=== PATIENT | female | born 1950 | race Two or more races ===

== ENCOUNTER 2021-02-04 09:06 | Outpatient (REF) | payer OTHER, SELFPAY ==
[2021-02-05 14:29] LABS: BV Int Neg Control Negative (Negative); BV Int Pos Control Positive (Positive)
== END 2021-02-04 09:07 | disposition home or self-care (01) ==
LOC: HO.LAB 09:06
PROVIDERS: PCP Internal Medicine; Visit Provider Advanced Practice Midwife
DX: N90.89 Other specified noninflammatory disorders of vulva and perineum (principal); N89.8 Other specified noninflammatory disorders of vagina
CPT/HCPCS: 87255; 87480; 87510; 87660; 99212

== ENCOUNTER 2021-02-13 | Outpatient (REF) | payer OTHER, SELFPAY | END 2021-02-13 00:01 | disposition home or self-care (01) | LOC: HO.LAB | PROVIDERS: Visit Provider Obstetrics & Gynecology | DX: L29.2 Pruritus vulvae (principal) | CPT/HCPCS: 88305; 88312 ==

== ENCOUNTER → 2021-02-13 11:07 | Outpatient (BNVA) | payer OTHER, SELFPAY | PROVIDERS: PCP Internal Medicine; Visit Provider Obstetrics & Gynecology | DX: L29.2 Pruritus vulvae (principal) | CPT/HCPCS: 56605; 99212 ==

== ENCOUNTER → 2021-03-13 15:42 | Outpatient (BNVA) | payer OTHER, SELFPAY | PROVIDERS: Visit Provider Obstetrics & Gynecology | DX: L90.0 Lichen sclerosus et atrophicus (principal) | CPT/HCPCS: 99212 ==

== ENCOUNTER 2021-06-24 14:09 | Emergency (ER) | payer OTHER, SELFPAY ==
--- NOTE | ~2021-06-24 | XR_ITS ---
EXAMINATION: XR LUMBOSACRAL SPINE CLINICAL INFORMATION: Fall, pain COMPARISON: No pertinent studies to compare TECHNIQUE: Three views of the lumbosacral spine. FINDINGS: There is grade 1 anterolisthesis of L4 and L5. This is likely degenerative. Acute listhesis cannot be completely excluded. Sclerotic changes in the endplates and sclerotic changes in the posterior elements from L3-L4 to L5-S1. Significant degeneration at L5-S1 with loss of disc height and posterior degenerative changes. Mild scoliosis convex left. From the vertebral heights are fairly well-preserved. XR/XR lumbar spine 2-3V IMPRESSION: No convincing evidence for an acute finding. Moderate degenerative changes and there is grade 1 anterolisthesis of L4 and L5 which may well be degenerative in nature. An element of acute listhesis cannot be completely excluded. No compression injury
--- NOTE | ~2021-06-24 | XR_ITS ---
Indication: Fall EXAMINATION: Bilateral knees., Left ankle 2 views of the right knee demonstrate degenerative changes. Moderate. No acute fracture or dislocation. 2 views of left knee and straight degenerative changes. Moderate. No acute fracture or dislocation. 3 views of the left ankle demonstrate soft tissue swelling. No acute fracture or dislocation. XR/XR knee RT 2V IMPRESSION: No acute fracture or dislocation left ankle, left knee or right knee. Degenerative changes noted
--- NOTE | ~2021-06-24 | XR_ITS ---
Indication: Fall EXAMINATION: Bilateral knees., Left ankle 2 views of the right knee demonstrate degenerative changes. Moderate. No acute fracture or dislocation. 2 views of left knee and straight degenerative changes. Moderate. No acute fracture or dislocation. 3 views of the left ankle demonstrate soft tissue swelling. No acute fracture or dislocation. XR/XR knee LT 2V IMPRESSION: No acute fracture or dislocation left ankle, left knee or right knee. Degenerative changes noted
--- NOTE | ~2021-06-24 | XR_ITS ---
Indication: Fall EXAMINATION: Bilateral knees., Left ankle 2 views of the right knee demonstrate degenerative changes. Moderate. No acute fracture or dislocation. 2 views of left knee and straight degenerative changes. Moderate. No acute fracture or dislocation. 3 views of the left ankle demonstrate soft tissue swelling. No acute fracture or dislocation. XR/XR ankle LT 2V IMPRESSION: No acute fracture or dislocation left ankle, left knee or right knee. Degenerative changes noted
[2021-06-24 15:23] VITALS: BP 121/97; PULSE 54; RESP 18; TEMP 36.8; O2SAT 99; BMI 24.0
[2021-06-24 17:51] VITALS: BP 184/89; PULSE 56; RESP 18; TEMP 36.8; O2SAT 97
--- NOTE | 2021-06-24 18:07 | ED_ITS ---
HPI - General Adult General Chief complaint: Extremity Injury, Lower Stated complaint: leg pain Time Seen by Provider: 06/24/21 18:01 Source: patient and family Limitations: no limitations History of Present Illness HPI narrative: This is a 71-year-old female who 3 [place] the [place] and [place], injuring her knees and her left ankle. The patient also complains of low back pain. She denies any head injury or loss of consciousness. She denies any headache or neck pain. She denies any chest pain, shortness of breath, or abdominal pain. She has been able to ambulate at home. Related Data Home Medications Medication Instructions Recorded Confirmed amlodipine 5 mg tablet 5 mg PO BEDTIME 02/04/21 gabapentin 300 mg capsule 300 mg PO 02/04/21 lisinopril 40 mg tablet 40 mg PO DAILY 02/04/21 melatonin 5 mg tablet 0 mg PO 02/04/21 metoprolol tartrate 25 mg tablet 37.5 mg PO TID 02/04/21 omeprazole 20 mg capsule,delayed 20 mg PO DAILY 02/04/21 release trazodone 50 mg tablet 50 mg PO BEDTIME 02/04/21 Previous Rx's Medication Instructions Recorded clobetasol 0.05 % topical ointment 1 appl TOPICAL DAILY #45 g 03/13/21 tramadol 50 mg tablet 50 - 100 mg PO Q4H PRN #20 tab 06/24/21 Allergies Allergy/AdvReac Type Severity Reaction Status Date / Time No Known Allergies Allergy Mild N/A Verified 06/24/21 15:23 Review of Systems Constitutional: Constitutional: Reports as per HPI Musculoskeletal: Musculoskeletal: Reports back pain and Reports arthralgias (Bilateral knees and left ankle) Integumentary/Breasts: Comments: Abrasion over right inferior knee Neurologic: Denies Sensory deficit (Neuro) FOR[facility]LY [facility] Past Medical History Medical History Arthritis Hx of migraine headaches Hypertension Insomnia Lichen sclerosus Surgical History H/O breast biopsy Hx of section Hx of tubal ligation Family History Family History Sister History of breast cancer Social History Social History Alcohol intake: never Advance Directives: No Advance Directives Information Provided: Yes Gender identity: female Physical Exam Vital Signs: Vital Signs: Last Vital Signs Temp 98.2 F 06/24/21 17:51 Pulse 56 06/24/21 17:51 Resp 18 06/24/21 17:51 BP 184/89 H 06/24/21 17:51 Pulse Ox 97 06/24/21 17:51 Body Mass Index 24.0 Const: General: cooperative, no acute distress and alert Orientation/consciousness: patient oriented x3 HENMT: Head: Yes normal to inspection Eyes: General: appearance normal, both eyes and all related structures Eyelids: Yes eyelids normal Conjunctivae: conjunctivae normal Pupils: Equal, round and reactive pupils present Neck: Neck: Yes normal visual inspection and Yes supple Chest: Chest palpation & inspection: normal inspection of the chest Resp: Effort & Inspection: normal respiratory effort Auscultation: clear to auscultation bilaterally Cardio: Rate: regular rate Rhythm: regular rhythm Heart sounds: S1 normal heart sound present, S2 normal heart sound present, no gallops, no murmurs and no rubs GI: Palpation (GI): Soft to palpation, nontender and Other GI palpation findings present (Non-distended) Auscultation: normal bowel sounds Back/Spine/Pelvis: Back: back tenderness (Tender over lumbar spine) Skin: General skin exam: no rashes or lesions noted Neuro: General: patient oriented x3, no focal motor deficits and CN's II-XI intact bilaterally Cranial nerves: Yes Equal, round and reactive pupils present Cognition (Neuro): normal cognition Motor exam (neuro): 5/5 motor strength present throughout Sensory Exam: No Sensory deficit (Neuro) Extrem: Other: Superficial abrasion over right inferior knee. Both knees otherwise atraumatic, no effusion. Mildly tender left lateral ankle with perhaps mild swelling. General: Yes normal to inspection and Yes no pedal edema Psych: Appearance: grossly normal Affect: normal affect Medical Decision Making MDM Narrative Medical decision making narrative: Patient with complaints of back pain, knee pain bilaterally, left ankle pain after fall 3 days ago at the beach. Patient appears well clinically, was able to stand up. Patient had a minor abrasion to right knee and mild tenderness to her left lateral ankle. Patient also had tenderness to her lumbar spine. X-rays negative. Patient can take acetaminophen and tramadol for pain Imaging Data Lumbar spine: Radiologist's impression: No convincing evidence for an acute finding. Moderate degenerative changes and there is grade 1 anterolisthesis of L4 and L5 which may well be degenerative in nature. An element of acute listhesis cannot be completely excluded. No compression injury Bilateral knees and left ankle: Radiologist's impression: DJD, no evidence of fracture Discharge Plan Discharge Clinical Impression: Fall, Low back pain, Bilateral knee pain, Left ankle sprain Patient Disposition: Home, Self-Care Instructions: Ankle Sprain (ED), Acute Low Back Pain (ED) Additional Instructions: Use Tylenol and tramadol for pain. Follow-up with primary care physician as needed. Prescriptions: New tramadol 50 mg tablet 50 - 100 mg PO Q4H PRN (Reason: pain) Qty: 20 RF: 0 No Action melatonin 5 mg tablet 0 mg PO RF: 0 metoprolol tartrate 25 mg tablet 37.5 mg PO TID RF: 0 omeprazole 20 mg capsule,delayed release(DR/EC) 20 mg PO DAILY RF: 0 gabapentin 300 mg capsule 300 mg PO RF: 0 amlodipine 5 mg tablet 5 mg PO BEDTIME RF: 0 trazodone 50 mg tablet 50 mg PO BEDTIME RF: 0 lisinopril 40 mg tablet 40 mg PO DAILY RF: 0 clobetasol 0.05 % ointment 1 appl topical DAILY Qty: 45 RF: 5 Interventions: ED Discharge Assessment Last Done: 06/24/21 19:11 Discharge Date/Time: 06/24/21 19:12
[2021-06-24] MEDS: traMADoL HCL 50 MG TABLET PO (19:09)
[2021-06-24] MEDS: Acetaminophen 325 MG TABLET 650 MG PO (19:09)
== END 2021-06-24 19:12 | disposition home or self-care (01) ==
PROVIDERS: Emergency Provider Emergency Medicine
DX: S93.402A Sprain of unspecified ligament of left ankle, initial encounter (principal); M25.561 Pain in right knee; M25.562 Pain in left knee; M54.5 Low back pain; W01.0XXA Fall on same level from slipping, tripping and stumbling without subsequent striking against object, initial encounter; Y93.9 Activity, unspecified; Y92.9 Unspecified place or not applicable; Y99.9 Unspecified external cause status; Z79.899 Other long term (current) drug therapy
CPT/HCPCS: 72100; 73560; 73600; 99283

== ENCOUNTER 2022-05-16 12:22 | Emergency (ER) | payer OTHER, SELFPAY ==
--- NOTE | ~2022-05-16 | CT_ITS ---
EXAMINATION: CT ABDOMEN AND PELVIS WITHOUT CONTRAST CLINICAL INFORMATION: Abdominal pain COMPARISON: CT abdomen pelvis 03/13/2014, chest radiograph 12/13/2017, CT PE 09/07/2017 TECHNIQUE: Multidetector volumetric imaging was performed from the superior aspect of the liver through the pubic symphysis. Sagittal and coronal reformatted images were obtained on the technologist's workstation. This CT examination was performed using dose optimization techniques as appropriate, variously including the following: *Automated exposure control *Adjustment of mA and/or kV according to patient size (this includes techniques or standardized protocols for targeted exams where dose is matched to indication/reason for exam; i.e. extremities or head) *Use of iterative reconstruction technique DLP: 1332 mGy-cm FINDINGS: Exam is motion degraded limiting evaluation. LUNG BASES: Calcified granuloma in the right lower lobe. 6 mm solid left lower lobe pulmonary nodule stable from 2013 therefore likely benign. ABDOMINAL AND PELVIC WALL: Unremarkable. LIVER AND BILIARY TREE: Unremarkable. GALLBLADDER: Unremarkable. PANCREAS: Unremarkable. SPLEEN: Unremarkable. ADRENAL GLANDS: Unremarkable. KIDNEYS AND URETERS: Unremarkable. GASTROINTESTINAL TRACT: Large and small bowel are nondilated without evidence of bowel obstruction. Normal appendix. VASCULAR: Unremarkable. LYMPH NODES/PERITONEUM: No lymphadenopathy. FREE FLUID: None. BLADDER: Unremarkable. 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 OSSEOUS STRUCTURES: Age-indeterminate inferior wedge compression deformity of the T11 vertebral body with 25% height loss new from prior. Multilevel degenerative disc disease. CT/CT abdomen pelvis wo con IMPRESSION: Age-indeterminate inferior wedge compression deformity of the T11 vertebral body with 25% height loss new from prior. Exam is motion degraded limiting evaluation.
[2022-05-16 13:06] VITALS: BP 163/88; PULSE 71; RESP 16; TEMP 36.2; O2SAT 98; BMI 25.7
[2022-05-16 13:43] LABS: Alanine Aminotransferase 11 U/L (0-31); Albumin Level 4.2 g/dL (3.5-5.0); Alkaline Phosphatase 67 U/L (39-117); Anion Gap 11 (12-20); Aspartate Amino Transferase 14 U/L (5-31); Bilirubin Total 0.9 mg/dL (0.0-1.0); Blood Urea Nitrogen 10 mg/dL (9-16); Calcium 9.3 mg/dL (8.4-10.2); Carbon Dioxide 29 mmol/L (22-29); Chloride 104 mmol/L (96-108); Creatinine Clr Calc Pharmacy 52.1; Estimated Glomerular Filt Rate > 60; Glucose Random 106 mg/dL (60-115); Lipase 34 U/L (8-78); Potassium 3.8 mmol/L (3.3-5.1); Sodium 140 mmol/L (135-145); Total Protein 6.9 g/dL (6.5-8.0)
[2022-05-16 13:45] LABS: Hematocrit 39.5 % (37.0-47.0); Hemoglobin 13.3 g/dl (12.0-16.0); Mean Corpuscular HGB Conc 33.7 g/dl (31.0-35.0); Mean Corpuscular Hemoglobin 28.2 pg (27.0-33.0); Mean Corpuscular Volume 83.9 fL (80.0-98.0); Mean Platelet Volume 9.2 fL (9.4-12.3); Platelet Count 241 X10*3/uL (160-400); Red Blood Count 4.71 X10*6/uL (4.20-5.50); Red Cell Distribution Width 13.2 % (11.0-16.0); White Blood Count 6.4 X10*3/uL (4.8-10.8)
[2022-05-16 13:50] LABS: COVID-19 Test Negative (Negative); IDNOW Serial# 16C4AD1C
[2022-05-16 13:51] LABS: Prothrombin Time 11.2 SEC (10.0-13.1)
--- NOTE | 2022-05-16 14:32 | ED.ABDPAIN ---
HPI - Abdominal Pain General Chief Complaint: Abdominal Pain Stated Complaint: Stomach Pain Time Seen by Provider: 05/16/22 14:18 Source: patient and family (daughter) Mode of arrival: ambulatory History of Present Illness HPI narrative: This is a 72 years old female presented to the emergency department the daughter complaining of abdominal pain which has been ongoing for about a month. She denies any vomiting any diarrhea.Daughter states that she has blood in the stls MD elicited complaint: abdominal pain Pertinent past history: gastritis Onset (ago): month(s) (1 month) Pain Consistency: constant Location: epigastric Severity: mild Quality: cramping Radiation: none Migration to: no migration Relieving factors: nothing Related Data Home Medications Medication Instructions Recorded Confirmed amlodipine 5 mg tablet 5 mg PO BEDTIME 02/04/21 gabapentin 300 mg capsule 300 mg PO 02/04/21 lisinopril 40 mg tablet 40 mg PO DAILY 02/04/21 melatonin 5 mg tablet 0 mg PO 02/04/21 metoprolol tartrate 25 mg tablet 37.5 mg PO TID 02/04/21 omeprazole 20 mg capsule,delayed 20 mg PO DAILY 02/04/21 release trazodone 50 mg tablet 50 mg PO BEDTIME 02/04/21 Previous Rx's Medication Instructions Recorded clobetasol 0.05 % topical ointment 1 appl topical DAILY #45 grams 03/13/21 tramadol 50 mg tablet 50 - 100 mg PO Q4H PRN pain #20 06/24/21 tabs Allergies Allergy/AdvReac Type Severity Reaction Status Date / Time No Known Allergies Allergy Mild N/A Verified 05/16/22 13:11 Review of Systems Review of Systems Yes all other systems are reviewed and are negative Reports system reviewed and no additional complaints, except as documented Cardiovascular: Reports no additional cardiovascular complaints Respiratory: Reports no additional respiratory complaints Gastrointestinal: Reports abdominal pain Reports system reviewed and no additional complaints, except as documented PMFSH Past Medical History Medical History Arthritis Hx of migraine headaches Hypertension Insomnia Lichen sclerosus Surgical History H/O breast biopsy Hx of section Hx of tubal ligation Family History Family History Sister History of breast cancer Social History Social History Alcohol intake: never Advance Directives: No Advance Directives Information Provided: Yes Gender identity: Female Physical Exam ED Vital Signs: Vital Signs - 24 hr 05/16/22 13:06 05/16/22 16:01 Temperature 97.1 F 98.3 F Pulse Rate 71 49 L Respiratory Rate 16 16 Blood Pressure 163/88 H 162/77 H Pulse Oximetry 98 98 Oxygen Delivery Method Room Air Room Air BMI result Body Mass Index 25.7 Const General: cooperative, comfortable, no acute distress, well developed, alert and awake Nutritional Appearance: average body habitus Orientation/consciousness: patient oriented x3 HENMT Head: Yes normal to inspection Face and sinus: Yes normal facial exam Mouth: Normal oral and palatal mucosa present Throat: Yes posterior oropharynx normal Eyes Conjunctivae: conjunctivae normal Sclerae: sclerae normal Neck Neck: Yes normal visual inspection Chest Chest palpation & inspection: normal inspection of the chest Resp Effort & Inspection: normal respiratory effort Auscultation: clear to auscultation bilaterally Cardio Jugular venous distension: no JVD Rate: regular rate Rhythm: regular rhythm GI Inspection: Yes normal to inspection Palpation (GI): Soft to palpation, not firm, nontender and no guarding Rectal Exam - Female: visual inspection normal, normal sphincter tone, heme positive stool Rectal exam heme positive - female: trace (stools brown trace heme positive), No fecal impaction, No Anal fissure(s) present, No hemorrhoids and No mass General: Yes no CVA tenderness Back/Spine/Pelvis Back: no CVA tenderness Skin General skin exam: no rashes or lesions noted, elasticity normal and turgor normal Lesions: no lesions Rashes: no rashes Neuro General: patient oriented x3 Cranial nerves: Yes CN's II-XII intact bilaterally Gait exam (Neuro): Normal gait present Course Course Course Narrative: Pt has normal WBC,HB /HCT is 13.3/39.5 pain hs been ongoing for 1 Month she is already on omeprazole, we will get CT scan abdomen and reassess Reevaluation(s) Reevaluation #1: she is feeling better no abdominal pain at this time she is taking omeprazole already. HB/HCT normal ct abdomen no bowel pathology. Shared decision making with pt and daughter it is resonable work this up s outpatient with endoscopy upper and lower,daughter comfortable with the plan of care. I also explained to the daughter and the pt that she has compressive Fx of T11 will need follow up with PCP as well Time: 16:02 Reevaluation #2: I spoke also with GI Dr Hamm will see pt in the office and will schedule upper and lower endoscopy Time: 16:03 MDM - Abdominal Pain Lab Data Result diagrams: 05/16/22 13:20 05/16/22 13:20 Labs: Lab Results 05/16/22 05/16/22 05/16/22 Range/Units 13:20 13:20 13:20 WBC 6.4 (4.8-10.8) X10*3/uL RBC 4.71 (4.20-5.50) X10*6/uL Hgb 13.3 (12.0-16.0) g/dl Hct 39.5 (37.0-47.0) % MCV 83.9 (80.0-98.0) fL MCH 28.2 (27.0-33.0) pg MCHC 33.7 (31.0-35.0) g/dl RDW 13.2 (11.0-16.0) % Plt Count 241 (160-400) X10*3/uL MPV 9.2 L (9.4-12.3) fL Absolute Nucleated RBC 0.000 (0.0-0.012) X10*3/uL Nucleated RBC % (auto) 0.0 (0.0-0.2) /100WBC PT 11.2 (10.0-13.1) SEC INR 1.0 (0.9-1.1) Sodium 140 (135-145) mmol/L Potassium 3.8 (3.3-5.1) mmol/L Chloride 104 (96-108) mmol/L Carbon Dioxide 29 (22-29) mmol/L Anion Gap 11 L (12-20) BUN 10 (9-16) mg/dL Creatinine 0.91 (0.5-1.4) mg/dL Estim Creat Clear Calc 52.1 Estimated GFR > 60 Random Glucose 106 (60-115) mg/dL Calcium 9.3 (8.4-10.2) mg/dL Total Bilirubin 0.9 (0.0-1.0) mg/dL AST 14 (5-31) U/L ALT 11 (0-31) U/L Alkaline Phosphatase 67 (39-117) U/L Total Protein 6.9 (6.5-8.0) g/dL Albumin 4.2 (3.5-5.0) g/dL Lipase 34 (8-78) U/L Urine Color Urine Appearance Urine pH (5.0-8.0) Ur Specific [place] (1.005-1.025) Urine Protein (NEG-TRACE) MG/DL Urine Glucose (UA) (NEG) MG/DL Urine Ketones (NEG) MG/DL Urine Blood (NEG) Urine Nitrite (NEG) Ur Leukocyte Esterase (NEG) Stool Occult Blood (NEGATIVE) COVID-19 ([facility]) (Negative) COVID-19 Clin Com Blood Type Antibody Screen 05/16/22 05/16/22 05/16/22 Range/Units 13:20 13:20 14:51 WBC (4.8-10.8) X10*3/uL RBC (4.20-5.50) X10*6/uL Hgb (12.0-16.0) g/dl Hct (37.0-47.0) % MCV (80.0-98.0) fL MCH (27.0-33.0) pg MCHC (31.0-35.0) g/dl RDW (11.0-16.0) % Plt Count (160-400) X10*3/uL MPV (9.4-12.3) fL Absolute Nucleated RBC (0.0-0.012) X10*3/uL Nucleated RBC % (auto) (0.0-0.2) /100WBC PT (10.0-13.1) SEC INR (0.9-1.1) Sodium (135-145) mmol/L Potassium (3.3-5.1) mmol/L Chloride (96-108) mmol/L Carbon Dioxide (22-29) mmol/L Anion Gap (12-20) BUN (9-16) mg/dL Creatinine (0.5-1.4) mg/dL Estim Creat Clear Calc Estimated GFR Random Glucose (60-115) mg/dL Calcium (8.4-10.2) mg/dL Total Bilirubin (0.0-1.0) mg/dL AST (5-31) U/L ALT (0-31) U/L Alkaline Phosphatase (39-117) U/L Total Protein (6.5-8.0) g/dL Albumin (3.5-5.0) g/dL Lipase (8-78) U/L Urine Color Urine Appearance Urine pH (5.0-8.0) Ur Specific [place] (1.005-1.025) Urine Protein (NEG-TRACE) MG/DL Urine Glucose (UA) (NEG) MG/DL Urine Ketones (NEG) MG/DL Urine Blood (NEG) Urine Nitrite (NEG) Ur Leukocyte Esterase (NEG) Stool Occult Blood POSITIVE (NEGATIVE) COVID-19 ([facility]) Negative (Negative) COVID-19 Clin Com See Note Blood Type O Positive Antibody Screen NEGATIVE 05/16/22 Range/Units 15:56 WBC (4.8-10.8) X10*3/uL RBC (4.20-5.50) X10*6/uL Hgb (12.0-16.0) g/dl Hct (37.0-47.0) % MCV (80.0-98.0) fL MCH (27.0-33.0) pg MCHC (31.0-35.0) g/dl RDW (11.0-16.0) % Plt Count (160-400) X10*3/uL MPV (9.4-12.3) fL Absolute Nucleated RBC (0.0-0.012) X10*3/uL Nucleated RBC % (auto) (0.0-0.2) /100WBC PT (10.0-13.1) SEC INR (0.9-1.1) Sodium (135-145) mmol/L Potassium (3.3-5.1) mmol/L Chloride (96-108) mmol/L Carbon Dioxide (22-29) mmol/L Anion Gap (12-20) BUN (9-16) mg/dL Creatinine (0.5-1.4) mg/dL Estim Creat Clear Calc Estimated GFR Random Glucose (60-115) mg/dL Calcium (8.4-10.2) mg/dL Total Bilirubin (0.0-1.0) mg/dL AST (5-31) U/L ALT (0-31) U/L Alkaline Phosphatase (39-117) U/L Total Protein (6.5-8.0) g/dL Albumin (3.5-5.0) g/dL Lipase (8-78) U/L Urine Color YELLOW Urine Appearance CLEAR Urine pH 7.0 (5.0-8.0) Ur Specific [place] <= 1.005 (1.005-1.025) Urine Protein NEG (NEG-TRACE) MG/DL Urine Glucose (UA) NEG (NEG) MG/DL Urine Ketones NEG (NEG) MG/DL Urine Blood TRACE (NEG) Urine Nitrite NEG (NEG) Ur Leukocyte Esterase NEG (NEG) Stool Occult Blood (NEGATIVE) COVID-19 ([facility]) (Negative) COVID-19 Clin Com Blood Type Antibody Screen Imaging Data CT scan - abdomen: Radiologist's impression: ADRENAL GLANDS: Unremarkable.? KIDNEYS AND URETERS: Unremarkable.? GASTROINTESTINAL TRACT: Large and small bowel are nondilated without evidence of bowel obstruction.? Normal appendix. VASCULAR: Unremarkable. LYMPH NODES/PERITONEUM: No lymphadenopathy. FREE FLUID: None. BLADDER: Unremarkable.? 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 OSSEOUS STRUCTURES: Age-indeterminate inferior wedge compression deformity of the T11 vertebral body with 25% height loss new from prior. Multilevel degenerative disc disease.? CT/CT abdomen pelvis wo con IMPRESSION: ? Age-indeterminate inferior wedge compression deformity of the T11 vertebral body with 25% height loss new from prior. ? Exam is motion degraded limiting evaluation. ? ? Discharge Plan Discharge Clinical Impression: Abdominal pain, Compression fx, thoracic spine Patient Disposition: Home, Self-Care Instructions: Vertebral Compression Fracture (ED), Abdominal Pain (ED) Additional Instructions: follow up with internal medicine physician Dr Hamm,return if worse, take the prilosec twice Day till you see Dr Hamm Prescriptions: No Action tramadol 50 mg tablet 50 - 100 mg PO Q4H PRN (Reason: pain) Qty: 20 0RF melatonin 5 mg tablet 0 mg PO metoprolol tartrate 25 mg tablet 37.5 mg PO TID omeprazole 20 mg capsule,delayed release(DR/EC) 20 mg PO DAILY gabapentin 300 mg capsule 300 mg PO amlodipine 5 mg tablet 5 mg PO BEDTIME trazodone 50 mg tablet 50 mg PO BEDTIME lisinopril 40 mg tablet 40 mg PO DAILY clobetasol 0.05 % ointment 1 appl topical DAILY Qty: 45 5RF Referrals: Milton Hamm [Physician] - 3 days Interventions: ED Discharge Assessment Last Done: 05/16/22 16:07 Discharge Date/Time: 05/16/22 16:10
[2022-05-16 15:04] LABS: OBS Int Ctl Valid YES; OBS1 POSITIVE (NEGATIVE)
[2022-05-16] MEDS: Magnesium Hydrox/Alum Hydrox 30 ML ORAL.SUSP PO (15:58)
[2022-05-16 16:01] VITALS: BP 162/77; PULSE 49; RESP 16; TEMP 36.8; O2SAT 98
[2022-05-16 16:02] LABS: Appearance Urine CLEAR; Color Urine YELLOW; Glucose Urine UA NEG (NEG); Leukocyte Esterase Urine NEG (NEG); Nitrite Urine NEG (NEG); Specific Gravity - Urine <= 1.005 (1.005-1.025); UACC Culture Trigger NO; Urine Blood TRACE (NEG); Urine Ketones NEG (NEG); Urine Protein NEG (NEG-TRACE)
[2022-05-16 16:18] LABS: Squamous Epithelial Cell Urine TRACE /LPF; WBC Urine 0-2 /HPF (0-4)
== END 2022-05-16 16:10 | disposition home or self-care (01) ==
PROVIDERS: Emergency Provider Emergency Medicine
DX: R10.9 Unspecified abdominal pain (principal); S22.080A Wedge compression fracture of T11-T12 vertebra, initial encounter for closed fracture; X58.XXXA Exposure to other specified factors, initial encounter; Z20.822 Contact with and (suspected) exposure to COVID-19; Y93.9 Activity, unspecified; Y92.9 Unspecified place or not applicable; Y99.9 Unspecified external cause status
CPT/HCPCS: 74176; 80053; 81001; 81003; 82272; 83690; 85027; 85610; 86850; 86900; 86901; 87635; 99284

== ENCOUNTER → 2022-06-01 15:09 | Outpatient (BNVA) | payer OTHER, SELFPAY | PROVIDERS: Visit Provider Obstetrics & Gynecology | DX: L90.0 Lichen sclerosus et atrophicus (principal) | CPT/HCPCS: 99212 ==

== ENCOUNTER → 2022-08-11 12:08 | Outpatient (BNVA) | payer OTHER, SELFPAY | PROVIDERS: PCP Internal Medicine Geriatric Medicine; Visit Provider Nurse Practitioner | DX: Z01.818 Encounter for other preprocedural examination (principal); R19.7 Diarrhea, unspecified; K57.92 Diverticulitis of intestine, part unspecified, without perforation or abscess without bleeding; R10.9 Unspecified abdominal pain | CPT/HCPCS: 99202 ==

== ENCOUNTER 2024-01-06 16:17 | Outpatient (REF) | payer OTHER, SELFPAY ==
[2024-01-06 17:51] LABS: Hematocrit 29.7 % (37.0-47.0); Hemoglobin 8.8 g/dl (12.0-16.0); Mean Corpuscular HGB Conc 29.6 g/dl (31.0-35.0); Mean Corpuscular Hemoglobin 20.1 pg (27.0-33.0); Mean Corpuscular Volume 67.8 fL (80.0-98.0); Platelet Count 243 X10*3/uL (160-400); Red Blood Count 4.38 X10*6/uL (4.20-5.50); Red Cell Distribution Width 18.2 % (11.0-16.0); White Blood Count 4.9 X10*3/uL (4.8-10.8)
[2024-01-06 18:18] LABS: Alanine Aminotransferase 10 U/L (0-31); Albumin Level 3.8 g/dL (3.5-5.0); Alkaline Phosphatase 60 U/L (39-117); Anion Gap 14 (12-20); Aspartate Amino Transferase 12 U/L (5-31); Bilirubin Total 0.5 mg/dL (0.0-1.0); Blood Urea Nitrogen 11 mg/dL (9-16); Calcium 9.1 mg/dL (8.4-10.2); Carbon Dioxide 30 mmol/L (22-29); Chloride 103 mmol/L (96-108); Estimated Glomerular Filt Rate > 60; Glucose Random 103 mg/dL (60-115); Iron 14 mcg/dL (30-160); Percent Iron Saturation 5 % (15-50); Potassium 3.7 mmol/L (3.3-5.1); Sodium 143 mmol/L (135-145); Total Iron Binding Capacity 290 mcg/dL (228-428); Total Protein 6.8 g/dL (6.5-8.0); Unsaturated Iron Binding 276 ug/dL
[2024-01-06 18:24] LABS: Ferritin 6 ng/mL (10-250); TSH reflex Free T4 0.39 uIU/mL (0.32-4.0)
[2024-01-06 18:37] LABS: Folate 8.3 ng/mL (> or = 4.0); Vitamin B12 228 pg/mL (200-900)
[2024-01-07 04:47] LABS: Estimated Average Glucose 103 mg/dL; Hemoglobin A1c % 5.2 % (<6.0)
== END 2024-01-06 16:18 | disposition home or self-care (01) ==
LOC: HO.HHCL 16:17
PROVIDERS: Visit Provider Student in an Organized Health Care Education/Training Program
DX: R42 Dizziness and giddiness (principal)
CPT/HCPCS: 36415; 80053; 82607; 82728; 82746; 83036; 83540; 84443; 85027

== ENCOUNTER 2024-01-27 11:56 | Outpatient (AMB) | payer OTHER, SELFPAY ==
--- NOTE | 2024-01-27 12:07 | A.OFFVIS_ITS ---
Intake Vital Signs 3 01/27/24 12:25 Height 5 ft 4 in Weight 123 lb 0.287 oz BMI 21.1 BP 113/79 Blood Pressure Location Rt brachial Position Sitting Pulse 85 Intake Visit Reasons: Colonoscopy Screening Intake Note: Patient presents to in office visit today for colonoscopy screening. CC: Patient's BUHR DRESSER and daughter states that the patient c/o epigastric pain, diarrhea, occasional blood in the stool, and stool incontinence. Patient's daughter states that she forgot the medication's list. Clinical Education Academic Coordinator Required: Yes Accompanied by: Family/Other Allergies No Known Allergies Allergy (Mild, Verified 01/27/24 12:32) N/A HPI Colonoscopy Screening 2 HPI0 Details Assessment & Plan (1) Pre-op examination: ?Code(s): Z01.818 - Encounter for other preprocedural examination ?Plan: [place] #[id number] She is here with a female family member who is her primary slitter helper and provides most of the history She has been having stomach pain, and then she have diarrhea and when she wipes it is blood. It is on the TT only and BRB. She indicates that the pain is over the entire abdomen. She is unable to express where the pain is better related to her impaired intellectual/cognitive this s disability.? 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 At times she will even have fecal incontinence. They can not ID any medication changes, illness or diet changes prior to this. She does not take any CIC medications. She is not on any anticoagulation. She is on iron therapy oral. There is no FHX of known CRC, stomach cancer, or colon problem. No N/V, not wt loss. She has never had a colonoscopy. I think we will get a EGD/colonoscopy, and an US of the abd. Also a GI panel and HP stool. She is on omeprazole qd. Start augmentin as she is quite sensitive in the left lower quadrant on exam and I will empirically try treating her for diverticulitis rather than putting her through another CT scan since she does had 1 in May of this year. There are no prior problems with anesthesia or sedation. No ID problems The do not know who her shaft headman is, may have to ask Dr. Holt if they require confirmation of her cardiac fitness for these procedures. ROV after US. (2) Diarrhea: ?Code(s): R19.7 - Diarrhea, unspecified (3) Diverticulitis: ?Code(s): K57.92 - Diverticulitis of intestine, part unspecified, without perforation or abscess without bleeding (4) Abdominal pain: ?Code(s): R10.9 - Unspecified abdominal pain ? ? ? Orders: Orders DGI Panel Today R19.7 - Diarrhea, unspecified ? DH pylori Ag StoolA Today R19.7 - Diarrhea, unspecified ? DUS abdomen complet e Today R10.9 - Unspecifie d abdominal pain, R19.7 - Diarrhea, unspecified ? Medications: New Epeg 3350-electroly yana 236-22.74-6.74 -5.86 gram (Golyt hema) ?? until feca l effluent is phuong r; do not exceed a total volume of 2 ,000 mL 240 mL? PO Q10M 1 day 4,000 mL 0RF H Z12.11 - Encounter for screening for malignant neoplas m of colon ? Eamoxicillin-pot cl avulanate 875-125 mg 1 tab? PO BID 10 days 20 tabs 0RF K57.92 - Diverticu litis of intestine , part unspecified , without perforat ion or abscess wit hout bleeding LABS: Ordered labs never obtained ULTRASOUND OF THE ABDOMEN 05/16/22 Not obtained * CT ABDOMEN AND PELVIS FINDINGS: Exam is motion degraded limiting evaluation. LUNG BASES: Calcified granuloma in the right lower lobe. 6 mm solid left lower lobe pulmonary nodule stable from 2014 therefore likely benign. ABDOMINAL AND PELVIC WALL: Unremarkable. LIVER AND BILIARY TREE: Unremarkable. GALLBLADDER: Unremarkable. PANCREAS: Unremarkable. SPLEEN: Unremarkable. ADRENAL GLANDS: Unremarkable. KIDNEYS AND URETERS: Unremarkable. GASTROINTESTINAL TRACT: Large and small bowel are nondilated without evidence of bowel obstruction. Normal appendix. VASCULAR: Unremarkable. LYMPH NODES/PERITONEUM: No lymphadenopathy. FREE FLUID: None. BLADDER: Unremarkable. 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 OSSEOUS STRUCTURES: Age-indeterminate inferior wedge compression deformity of the T11 vertebral body with 25% height loss new from prior. Multilevel degenerative disc disease. CT/CT abdomen pelvis wo con IMPRESSION: Age-indeterminate inferior wedge compression deformity of the T11 vertebral body with 25% height loss new from prior. Laboratory Tests 01/06/24 16:19 WBC 4.9 Hgb 8.8 L D Hct 29.7 L D MCV 67.8 L MCH 20.1 L Plt Count 243 Estimated GFR > 60 Ferritin 6 L Total Bilirubin 0.5 AST 12 ALT 10 Alkaline Phosphata se 60 TSH 0.39 TODAY'S VISIT [place] # Prisca Live PATIENT HAS BEEN LOST TO FOLLOW-UP SINCE 08/2022 AND AT THAT TIME AN EGD/COLONOSCOPY WAS ORDERED. Her dtr says that her daughter told her she would not get it done if she was not asleep, and apparently they were redirected to Dr. Hamm/Len and they did not have interpreters. She has frequent diarrhea. This will be her first colonoscopy Her dtr with her do not know the patient's medications, and they say her heart beats too much but don't know if she has a cardiac problem. Her record indicates she has paroxysmal atrial fibrillation but she has not currently seeing Cardiology. A medication list sent from her last primary note does not indicate any anticoagulation. They deny any respiratory problems. She has anemia hence the EGD as well as colonoscopy. There are no prior problems with anesthesia or sedation. No ID problems There is no FHX of known CRC, stomach cancer, or colon problem [facility] Medical History (Updated 01/27/24 @ 13:13 by MARLEN Ferrer) Breast cancer Syphilis Lichen sclerosus Arthritis Insomnia Hx of migraine headaches Hypertension Surgical History H/O breast biopsy Hx of tubal ligation Hx of section Family History Sister History of breast cancer Sister Cancer Social History Household Members: None Housing: Apartment Alcohol intake: never Patient Tobacco Use Status: Never used Tobacco Gender identity: Female Review of Systems Const Denies fatigue, Denies fever(s), Denies night sweats, Denies poor appetite and Denies weight loss ENT Reports Normal hearing present, Denies dental pain, Denies dysphagia, Reports dizziness, Denies hearing loss, Denies mouth pain, Denies odynophagia, Denies throat swelling, Denies tongue swelling and Reports other (Dentition adequate) Card Reports lightheadedness and Reports palpitations Resp Reports no additional complaints GI Details: Denies abdominal pain, Denies melena, Denies bloating, Denies hematochezia, Denies constipation, Denies GI cramping, Denies dysphagia, Denies excessive flatus, Denies early satiety, Denies heartburn, Denies diarrhea, Denies nausea, Denies odynophagia, Denies vomiting and Denies hematemesis Musc Reports back pain and Reports myalgias Skin/Breast Denies pruritus, Denies lesions, Denies rash and Denies jaundice Neuro Reports Normal hearing present, Denies Abnormal speech present and Reports dizziness Endo Denies fatigue and Reports palpitations Aller/Immun Denies throat swelling and Denies tongue swelling Physical Exam Vital Signs: Last Vital Signs Pulse 85 01/27/24 12:25 BP 113/79 01/27/24 12:25 BMI result Body Mass Index 21.1 Const General: cooperative, no acute distress, well developed and well groomed Nutritional Appearance: average body habitus and well nourished Orientation/consciousness: oriented to person, oriented to place and oriented to time Limitations: language barrier, ambulation with walker and other limitations (Cognitive deficit) HEENT Head: Yes normocephalic and Yes atraumatic Eyes General: appearance normal, both eyes and all related structures Pupils: Equal, round and reactive pupils present Neck Neck: Yes normal visual inspection and Yes no lymphadenopathy Thyroid: Thyroid normal Resp Effort & Inspection: normal respiratory effort and able to speak in complete sentences Auscultation: clear to auscultation bilaterally Cardio Rate: regular rate Rhythm: abnormal rhythm irregularly irregular Heart sounds: Normal, physiologic split S2 sound present Peripheral pulses: radial pulses present and posterior tibial pulses present GI Inspection: No distended and No Abdominal panniculus present Palpation (GI): Soft to palpation, nontender, no guarding, not rigid and No hepatosplenomegaly present Percussion: Yes normal to percussion Auscultation: normal bowel sounds Rectal Exam - Female: deferred Abdomen image: 2 1. surgical scar Skin General skin exam: no rashes or lesions noted, turgor normal, skin not dry, no jaundice, No spider nevi and no striae Rashes: no rashes Nails: normal Neuro General: oriented to person, oriented to place and oriented to time Cranial nerves: Yes Equal, round and reactive pupils present and Yes Normal hearing present Speech: No Abnormal speech present Extrem General: Yes normal to inspection, No clubbing, No cyanosis and No edema Psych Appearance: grossly normal and well kempt Mental Status: other Speech and movement: Slurred speech present Affect: normal affect Attitude: cooperative Thought process: not confabulating and Impoverished thought process present Thought content: Normal thought content present Insight: Poor insight present (Psych) Judgement: Poor judgement present (Psych) Assessment & Plan Assessment & Plan (1) Anemia: Code(s): D64.9 - Anemia, unspecified (2) Pre-op examination: Code(s): Z01.818 - Encounter for other preprocedural examination (3) Intellectual disability: Code(s): F79 - Unspecified intellectual disabilities (4) Paroxysmal atrial fibrillation: Comment: Not currently any anticoagulation Code(s): I48.0 - Paroxysmal atrial fibrillation Plan [place] # Prisca Live PATIENT HAS BEEN LOST TO FOLLOW-UP SINCE 08/2022 AND AT THAT TIME AN EGD/COLONOSCOPY WAS ORDERED. Her dtr says that her daughter told her she would not get it done if she was not asleep, and apparently they were redirected to Dr. Hamm/Len and they did not have interpreters. She has frequent diarrhea. This will be her first colonoscopy Her dtr with her do not know the patient's medications, and they say her heart beats too much but don't know if she has a cardiac problem. Her record indicates she has paroxysmal atrial fibrillation but she has not currently seeing Cardiology. A medication list sent from her last primary note does not indicate any anticoagulation. They deny any respiratory problems. She has anemia hence the EGD as well as colonoscopy. There are no prior problems with anesthesia or sedation. No ID problems There is no FHX of known CRC, stomach cancer, or colon problem Orders: Orders 2 EGD/[place] Combo - GI Use Only Today D64.9 - Anemia, unspecified Medications: New 2 peg 3350-electrolytes 236-22.74-6.74 -5.86 gram (Golytely) until fecal effluent is clear; do not exceed a total volume of 2,000 mL 240 mL PO Q10M 1 day 4,000 mL 0RF Z12.11 - Encounter for screening for malignant neoplasm of colon bisacodyl (Dulcolax (bisacodyl)) 10 mg (2 x 5 mg) PO BEDTIME 2 days 4 tabs 0RF Coding Level of Care Code New Pt Level 3 (84023) Diagnoses Anemia D64.9 Pre-op examination Z01.818 Intellectual disability F79 Paroxysmal atrial fibrillation I48.0
[2024-01-27 12:25] VITALS: BP 113/79; PULSE 85; BMI 21.1
== END 2024-01-27 13:00 | disposition home or self-care (01) ==
PROVIDERS: PCP Internal Medicine Geriatric Medicine; Visit Provider Nurse Practitioner
DX: R19.7 Diarrhea, unspecified (principal); D64.9 Anemia, unspecified; Z12.11 Encounter for screening for malignant neoplasm of colon; I48.0 Paroxysmal atrial fibrillation
CPT/HCPCS: 99213

== ENCOUNTER → 2024-01-27 11:56 | Outpatient (BNVA) | payer OTHER, SELFPAY | PROVIDERS: PCP Internal Medicine Geriatric Medicine; Visit Provider Nurse Practitioner | DX: Z01.818 Encounter for other preprocedural examination (principal); R10.13 Epigastric pain; R19.7 Diarrhea, unspecified; K57.92 Diverticulitis of intestine, part unspecified, without perforation or abscess without bleeding; D64.9 Anemia, unspecified; F79 Unspecified intellectual disabilities; I48.0 Paroxysmal atrial fibrillation | CPT/HCPCS: 99212 ==

== ENCOUNTER 2024-02-28 08:48 | Outpatient (REF) | payer OTHER, SELFPAY ==
--- NOTE | ~2024-02-28 | MM_ITS ---
EXAMINATION: MM SCREENING DIGITAL BREAST TOMOSYNTHESIS, BILATERAL CLINICAL INFORMATION: Screening. Asymptomatic. History of benign left excisional biopsy. History of benign right excisional biopsy right upper outer quadrant 2008 yielding fibroadenoma with dystrophic calcifications. COMPARISON: Mammography: 10/21/2017, 04/06/2017, 09/17/2015, 12/27/2014, 11/13/2013, 09/22/2012; ultrasound left breast 09/17/2015. 10/27/2011. 09/25/2010. TECHNIQUE: Digital breast tomosynthesis is performed in both the craniocaudal and mediolateral oblique views along with computer-aided detection (CAD). Synthesized 2D images are generated from the tomosynthesis. Additional right MLO was obtained. Additional left MLO was obtained. FINDINGS: The breasts are heterogeneously dense, which may obscure small masses (ACR BI-RADS breast composition Category c). Patient has a stable chronic mass in the left breast 3:00 position measuring approximately 4.6 cm. There is overlying surgical scar from prior benign excisional biopsy. This is unchanged from studies dating back to 2006. Stable mild parenchymal distortion in the lateral right breast from prior benign excisional biopsy. There are bilateral vascular and benign type calcifications. There are no suspicious mass is identified in either breast which can be distinguished from the heterogeneously dense breast parenchyma. There are no grouped suspicious calcifications. There are no developing areas of architectural distortion. Overall parenchymal pattern is unchanged from numerous prior exams. There are no axillary abnormalities. MM/MM tomosynthesis screening BI IMPRESSION: -No mammographic evidence of malignancy. -Stable mass left breast, 3:00 axis, benign. -Stable postoperative scarring in both breasts. ASSESSMENT: BI-RADS BI-RADS 2 - Benign Findings RECOMMENDATION: Routine annual mammography screening. 1 year F/U This examination should not preclude the clinical evaluation of a suspicious palpable abnormality. This patient's information was entered into a reminder system with a target due date for their next mammogram.
== END 2024-02-28 08:49 | disposition home or self-care (01) ==
LOC: HO.MAMMO 08:48
PROVIDERS: PCP Student in an Organized Health Care Education/Training Program; Visit Provider Internal Medicine Geriatric Medicine
DX: Z12.31 Encounter for screening mammogram for malignant neoplasm of breast (principal)
CPT/HCPCS: 77063; 77067

== ENCOUNTER → 2024-02-28 09:45 | Outpatient (BNV) | payer OTHER, SELFPAY | PROVIDERS: PCP Student in an Organized Health Care Education/Training Program; Visit Provider Radiology Diagnostic Radiology | DX: Z12.31 Encounter for screening mammogram for malignant neoplasm of breast (principal) | CPT/HCPCS: 77063; 77067 ==

== ENCOUNTER → 2024-12-06 14:38 | Outpatient (BNVA) | payer OTHER, SELFPAY | PROVIDERS: PCP Internal Medicine Geriatric Medicine; Visit Provider Obstetrics & Gynecology | DX: Z01.419 Encounter for gynecological examination (general) (routine) without abnormal findings (principal); N76.6 Ulceration of vulva | CPT/HCPCS: 99212; 99397; 99459 ==

== ENCOUNTER 2025-03-05 09:02 | Outpatient (REF) | payer OTHER, SELFPAY ==
--- NOTE | ~2025-03-05 | MM_ITS ---
EXAMINATION: DXA BONE DENSITY AXIAL HISTORY: Z78.0 - Asymptomatic menopausal state TECHNIQUE: [employer] Dual energy absorptiometry (DEXA) of the lumbar spine, total right hip, and femoral neck was performed. COMPARISON: Comparison is made with the prior examination dated 12/08/2017. FINDINGS: The bone mineral density of the lumbar spine is 0.893 with a T-score of -2.3, and a Z-score of -0.6. This is indicative of osteopenia. This represents a BMD change of -13.0% compared to the prior exam. This is statistically significant. The bone mineral density of the right total hip is 0.670 with a T-score of -2.7, and a Z-score of -0.9. This is indicative of osteoporosis. This represents a BMD change of -35.1% compared to the prior exam. This is statistically significant. The bone mineral density of the right femoral neck is 0.631 with a T-score of -2.9, and a Z-score of -1.0. This is indicative of osteoporosis. This represents a BMD change of -28.9% compared to the prior exam. MM/XR DEXA axial skeleton IMPRESSION: Based on bone mineral density, and according to World Health Organization (WHO) criteria, the diagnosis is consistent with osteoporosis. All bone density values are in grams per centimeter squared (g/cm2). Statistically, 68% of repeat scans fall within 1 SD (+/- 0.010 g/cm2 for AP spine L1-L4) and 1 SD (+/- 0.012 g/cm2 for femur total) FRAX is a trademark of the [employer]'s [employer] [facility] Met[employer], a World Health Organization (WHO) Collaborating Center. Electronically signed by: Mike Bustos MD 03/06/2025 10:24 AM EDT
--- OUTSIDE RECORDS SUMMARY | 2025-03-05 09:37 | XMS_ITS ---
Author Organization [facility] on Care Team Providers Care Banquet Kitchen Supervisor Name Role Phone Guera Gandara Unavailable Unavailable Keyona Peraza Unavailable Unavailable Ruby Richards Unavailable Unavailable Elisabeth Teresa Unavailable Unavailable Allergies and adverse reactions No Known Allergies Care Team Name Role Address Phone Organization Dates Guera Gandara PCP [address], [place], [address], [place] (Office): : [facility] [place] 12/15/2022 - 12/23/2022 Keyona Peraza Attending Physician [address] [place], [address], [place] (Office): [facility] [place] 12/15/2022 - 12/23/2022 Ruby Richards Attending Physician [address] [place], [address], [place] (Office): [facility] [place] 12/15/2022 - 12/23/2022 Elisabeth Teresa Attending Physician [address] [place], [address], [place] (Office): : [facility] [place] 12/15/2022 - 12/23/2022 Immunizations Immunization Status Vaccine Details Vaccine Code CodeSystem Date Notes TB 1 Step Mantoux (PPD) completed tuberculin skin test; unspecified formulation lotNumber: [id number] expiry: 04/07/2025 Mfg: [employer] P[employer] Given 0.1 ml Right Forearm intradermally 98 CVX created date: 12/17/2022 consent date: 12/16/2022 administere d date: 12/16/2022 Pneumococcal Polysaccharide Vaccine (PPSV23) completed pneumococcal polysaccharide vaccine, 23 valent 33 CVX created date: 12/17/2022 administere d date: 11/09/2006 SARS-COV-2 (COVID-19) completed SARS-COV-2 (COVID-19) vaccine, mRNA, spike protein, LNP, preservative free, 50 mcg/0.5 mL dose Mfg: Moderna Step 2 of Multi-step with next step required 221 CVX created date: 12/15/2022 administere d date: 03/18/2021 SARS-COV-2 (COVID-19) completed SARS-COV-2 (COVID-19) vaccine, mRNA, spike protein, LNP, preservative free, 50 mcg/0.5 mL dose Mfg: Moderna Step 1 of Multi-step with next step required 221 CVX created date: 12/15/2022 administere d date: 02/18/2021 Mental Status Section Date Assessment Total Score Description 12/23/2022 CAM 6 Delirium indica michael Problems Problem # Description Date of onset Resolved Date Code CodeSystem Concern Status 1 AFTERCARE FOLLOWING JOINT REPLACEMENT SURGERY 12/15/[address] active 2 ANEMIA, UNSPECIFIED 12/15/[address] active 3 DISPLACED FRACTURE OF BASE OF NECK OF LEFT FEMUR, SUBSEQUENT ENCOUNTER FOR CLOSED FRACTURE WITH ROUTINE HEALING 12/15/[address] active 4 ESSENTIAL (PRIMARY) HYPERTENSION 12/15/[address] active 5 UNSPECIFIED ATRIAL FIBRILLATION 12/15/[address] active Reason for Referral No Reasons for Referral Entered Social History Social History Observation Description Start Date End Date Code Code System Current Smoking Status Tobacco smoking consumption unknown 088822970 SNOMED CT Sex Assigned At Female 1950 26111-6 [facility] Vital Signs Code Code System Vitals Name Values and Units Timing Information 9279-1 [facility] Respiratory Rate Value=16.0 Units=/m in 12/23/2022 8462-4 [facility] Blood Pressure-Diastolic Value=60 Un its=mmHg 12/23/2022 8480-6 [facility] Blood Pressure-Systolic Uhymt=669 Un its=mmHg 12/23/2022 8310-5 [facility] Body Temperature Value=97.2 Units=?? F 12/23/2022 8867-4 [facility] Heart rate Value=78.0 Units=/min 68685-4 [facility] O2 % BldC Oximetry Value=97.0 Units= % 12/23/2022 96827-2 [facility] Pain Level Value=0.0 12/23/2022 98916-7 [facility] Weight Inhzx=391.0 Units=Lbs 8302-2 [facility] Height Value=64.0 Units=Inches 12/20/2022
== END 2025-03-05 09:03 | disposition home or self-care (01) ==
LOC: HO.MAMMO 09:02
PROVIDERS: PCP Internal Medicine Geriatric Medicine; Visit Provider Obstetrics & Gynecology
DX: Z12.31 Encounter for screening mammogram for malignant neoplasm of breast (principal); Z13.820 Encounter for screening for osteoporosis; Z78.0 Asymptomatic menopausal state
CPT/HCPCS: 77063; 77067; 77080

== ENCOUNTER → 2025-03-05 10:00 | Outpatient (BNV) | payer OTHER, SELFPAY | PROVIDERS: PCP Internal Medicine Geriatric Medicine; Visit Provider Radiology Diagnostic Radiology | DX: E28.39 Other primary ovarian failure (principal) | CPT/HCPCS: 77080 ==